=== PATIENT | female | born 1980 | race Caucasian/White ===

== ENCOUNTER → 2016-05-15 | Day surgery (SDC) | payer OTHER ==
[~2016-05-15] VITALS: Ht 170.2 cm; Wt 86.6 kg
[~2016-05-15] MED LIST: /ADVA50050 INH; /LINE60TA OR; ALBU17IN INH; ALBU17IN2; AMIT50TA4 PO; BUPIVACAINE HCL 0.25% 30 ML VIAL As Ordered ONE; BUPIVACAINE HCL 0.25% 30 ML VIAL XX ONE; CETI5TAB2; CLAR5CHW OR; COMBIN INH; DEPOPROVERA; DOXY100T OR; GABA-283 PO; GABA300C2 PO; HYDR-2807 PO; IBUP200T2 PO; IBUP400T OR; KLON0.5T PO; LITH300T2; LR 1,000 ML IV SCH; LUPRON; LYRI150C PO; MEDR1VL IM; MIDAZOLAM INJ 2 MG/2 ML VIAL (J2250) As Ordered ONE; MIRAPEX; MIRAPEX PO; NORETHINDRONE PO; ONDANSETRON 4MG/2ML VIAL (J2405) As Ordered ONE; ONDANSETRON 4MG/2ML VIAL (J2405) IV PRN; OXYC1TAB23 PO; PERCOCET 5MG/325MG TAB PO PRN; PRIL40CA PO; RANITAB PO; SERO50TA3 PO; SILVER NITRATE APPLICATOR As Ordered ONE; SING10TA31 OR; SOMA350T OR; TAGA200T OR; VICO5TAB16 PO; VICODINES TAB OR; VITA-122 PO; ZANTTAB PO; [UNRECOGNIZED DRUG - OTHER]; fentaNYL 100 MCG/2 ML INJECTION (J3010) IV PRN; fentaNYL 250 MCG/5 ML INJECTION (J3010) As Ordered ONE; singular PO
[2016-05-15 06:49] LABS: MEAN CORPUSCULAR HEMOGLOBIN 28.8 pg (27.0-33.0); MEAN CORPUSCULAR VOLUME 87.2 fl (80.0-96.0); WHITE BLOOD COUNT 7.5 K/mm3 (4.0-10.0)
[2016-05-15 07:06] LABS: CONTROL LINE HCG INT CTR LINE PRESENT
[2016-05-15 09:22] VITALS: BP 134/80
--- NOTE | 2016-05-15 20:52 | RO ---
DATE OF PROCEDURE: 05/15/2016 PREOPERATIVE DIAGNOSES: 1. Chronic pelvic pain. 2. Vulvar mass x2. POSTOPERATIVE DIAGNOSES: 1. Chronic pelvic pain. 2. Vulvar mass x2. FINDINGS: Laparoscopic inspection revealed no evidence of endometriosis anywhere in the abdomen or pelvis. She also had no evidence of any abdominal pelvic adhesive disease. Inspection revealed normal appearing adnexa/bilateral ovaries and a normal appearing uterus. No uterine masses. No ovarian cysts or masses. Gambling Counsellor images taken. Normal liver edge. No intra-abdominal masses/adhesions. Vulvar mass was approximately 1.5 cm, condylomatous on the patient's left vulva/buttocks. She also had a right-sided vulvar skin tag just above clitoris. Both of these were removed without any difficulty. SURGEON: Dr. Jd Garcia DIRECTOR OF INSTITUTIONAL RESEARCH: Dr. Guanako Bass ANESTHESIA TYPE: General endotracheal. SPECIMENS SENT TO PATHOLOGY: 1. Vulvar mass/condyloma. 2. Vulvar mass/ skin tag. ESTIMATED BLOOD LOSS: 5 mL. FLUID REPLACED: 900 mL of lactated Ringer's. DRAINS: Mccartney catheter 300 mL urine output. COMPLICATIONS: None. PREOPERATIVE ANTIBIOTICS: None indicated. INDICATION: The patient is a 35-year-old 2, para 2 with a longstanding history of chronic pelvic pain. She has undergone multiple laparoscopies. With her last laparoscopy, she was told that she had endometriosis, and that the endometriosis was fulgurated and excised. She has had return of her chronic pelvic pain, and she has not been responsive to Depo-Provera medical therapy. She was adamant about proceeding towards another surgical evaluation/treatment. She also requested removal of the vulvar masses mentioned above. DESCRIPTION OF PROCEDURE: The patient was counseled and consented on the risks, benefits, indications, and alternatives of the procedure and informed consent was obtained. She was taken to the operating room with an IV running and placed on the operating table in the dorsal supine position where general anesthesia was administered and secured without any difficulty. She was placed in the low lithotomy position. She was prepared and draped in the normal sterile fashion. A time-out was performed per protocol. A Mccartney catheter was placed under sterile conditions. A sterile speculum was placed with good visualization of the cervix. The cervix was grasped with a single-tooth tenaculum and downward traction was applied. The [employer] uterine manipulator was then placed in typical fashion. The sterile speculum was removed. Glove switch was performed. Attention was turned to the abdomen. 5 mL of 0.25% Marcaine were injected into the umbilicus. A 5 mm incision was made in the umbilicus and through this 5 mm incision, a Veress needle was placed into the intraperitoneal cavity. Intraperitoneal placement was confirmed with ease of flow of normal saline, negative return on aspiration, and a positive drop test. Opening pressure was 6 mmHg. The abdomen was insufflated with 2 liters of gas, and the Veress needle was then removed. The size 5 mm Xcel laparoscopic trocar was placed under direct visualization and peritoneal placement was confirmed without any evidence of incidental bleeding or injury. The patient was placed in steep Trendelenburg. The uterus was manipulated to reveal pelvic anatomy. No significant findings were evident. No evidence of any endometriosis implants or significant adhesive disease. See findings above. Given the lack of findings, the patient was taken out of Trendelenburg. The gas was released from the abdomen. The laparoscopic cannula was removed. The skin incision was closed with #4-0 Monocryl in a subcuticular fashion and reinforced with Dermabond. Attention was turned back to the pelvis. The left vulvar mass was grasped with forceps and the underlying base was excised with a #15 blade until flush with the skin. The specimen was sent to pathology for permanent section. The resulting skin defect was closed with #3-0 Vicryl in running fashion. Excellent hemostasis was noted. The right-sided skin tag was then elevated with tissue forceps and at the base was excised with the #15 blade. This very small defect was bleeding very minimally and was cauterized with silver nitrate. Excellent hemostasis was noted. Pressure bandages were placed over both of these areas and excellent hemostasis was noted. The patient tolerated the entire procedure well. She was transferred to the post-anesthesia care unit (PACU) in good, stable condition. Of note, sponge, lap, needle and instrument counts were correct. EVANS
== END | disposition home or self-care (01) ==
LOC: M SDC 06:00
PROVIDERS: ATTEND Obstetrics & Gynecology
DX: R10.2 Pelvic and perineal pain (principal); N84.2 Polyp of vagina; N84.3 Polyp of vulva; K21.9 Gastro-esophageal reflux disease without esophagitis; F41.9 Anxiety disorder, unspecified; F32.9 Major depressive disorder, single episode, unspecified; J45.909 Unspecified asthma, uncomplicated; F17.210 Nicotine dependence, cigarettes, uncomplicated; Z88.0 Allergy status to penicillin; Z88.2 Allergy status to sulfonamides; Z88.8 Allergy status to other drugs, medicaments and biological substances; Z79.899 Other long term (current) drug therapy
CPT/HCPCS: 11420; 11422; 36415; 49320; 84703; 85027; 86850; 86900; 86901; 88304; J2250; J2405; J3010

== ENCOUNTER 2016-06-25 15:06 | Emergency (ER) | payer OTHER ==
[~2016-06-25] VITALS: Ht 170.2 cm; Wt 84.4 kg
[~2016-06-25 15:06] MED LIST changes: -BUPIVACAINE HCL 0.25% 30 ML VIAL As Ordered ONE; -BUPIVACAINE HCL 0.25% 30 ML VIAL XX ONE; -LR 1,000 ML IV SCH; -MIDAZOLAM INJ 2 MG/2 ML VIAL (J2250) As Ordered ONE; -ONDANSETRON 4MG/2ML VIAL (J2405) As Ordered ONE; -ONDANSETRON 4MG/2ML VIAL (J2405) IV PRN; -PERCOCET 5MG/325MG TAB PO PRN; -SILVER NITRATE APPLICATOR As Ordered ONE; -fentaNYL 100 MCG/2 ML INJECTION (J3010) IV PRN; -fentaNYL 250 MCG/5 ML INJECTION (J3010) As Ordered ONE
[2016-06-25] MEDS ORDERED: METOCLOPRAMIDE INJ 10MG/2ML VIAL (J2765) IV ONE (16:30)
[2016-06-25] MEDS ORDERED: methylPREDNISolone INJ 125 MG/2 ML VIAL (J2930) IV ONE (16:30)
[2016-06-25] MEDS ORDERED: KETOROLAC 30 MG/ML VIAL (J1885) IV ONE (16:30)
[2016-06-25] MEDS ORDERED: diphenhydrAMINE INJ 50MG/ML VIAL (J1200) IV STA (16:40)
--- NOTE | 2016-06-25 16:57 | REP ---
Clinical: Headache . Comparison: 01/29/2016 . Findings: The ventricles, sulci, and cisterns are normal in position and appearance. Aguilera-white differentiation is maintained. No acute intracranial hemorrhage, mass/mass effect, pathology or trauma/injury. No evidence for acute infarction. No extra-axial fluid collection. Calvarium is intact. Paranasal sinuses and mastoid air cells are clear. Impression: Normal noncontrast head CT. No evidence for acute intracranial pathology or trauma/injury. Signed by Uziel Freed MD 06/25/2016 04:49 P
[2016-06-25] MEDS ORDERED: NAPR500T PO (17:29)
[2016-06-25] MEDS ORDERED: PRED20TA PO (17:29)
[2016-06-25 17:31] VITALS: BP 121/83
== END 2016-06-25 17:42 | disposition home or self-care (01) ==
LOC: M ED 16:10
DX: J01.90 Acute sinusitis, unspecified (principal)
CPT/HCPCS: 70450; 96374; 96375; 99282; J1200; J2765; J2930

== ENCOUNTER 2016-08-17 18:06 | Emergency (ER) | payer OTHER ==
[~2016-08-17] VITALS: Ht 170.2 cm; Wt 84.4 kg
[~2016-08-17 18:06] MED LIST changes: +NAPR500T PO; +PRED20TA PO
[2016-08-17] MEDS ORDERED: CLON-412 (18:24)
[2016-08-17] MEDS ORDERED: SOMA350T PO (18:24)
[2016-08-17 18:49] LABS: BASO % 0.4 % (0.0-1.0); EOS # 0.2 K/mm3 (0.0-0.50); EOS % 1.6 % (0.0-3.0); LARGE UNSTAINED CELL # 0.1 K/mm3 (0.0-0.4); LYMPH # 2.3 K/mm3 (1.5-4.5); MEAN CORPUSCULAR HEMOGLOBIN 29.7 pg (27.0-33.0); MEAN CORPUSCULAR HGB CONC 33.7 g/dl (32.0-36.5); MONO # 0.3 K/mm3 (0.0-0.8); MONO % 3.3 % (0.0-5.0); NEUTROPHILS # 6.1 K/mm3 (1.8-7.7); NEUTROPHILS % 67.7 % (36.0-66.0); PLATELET COUNT, AUTOMATED 223 k/mm3 (150-450); RED CELL DISTRIBUTION WIDTH 12.9 % (11.5-14.5)
--- NOTE | 2016-08-17 19:10 | REP ---
Clinical: Chest pain . Comparison: 07/02/2015 . Findings: The mediastinum and cardiac silhouette are stable and within normal limits for portable technique. The lung rashid are clear without acute consolidation, effusion, or pneumothorax. Skeletal structures are intact. Impression: Normal portable chest x-ray Signed by Uziel Freed MD 08/17/2016 07:02 P
[2016-08-17] MEDS ORDERED: METOCLOPRAMIDE INJ 10MG/2ML VIAL (J2765) IV ONE (19:30)
[2016-08-17] MEDS ORDERED: diphenhydrAMINE INJ 50MG/ML VIAL (J1200) IV ONE (19:30)
[2016-08-17] MEDS ORDERED: KETOROLAC 30 MG/ML VIAL (J1885) IV ONE (19:30)
[2016-08-17] MEDS ORDERED: NS 1,000 ML IV ONE (19:30)
[2016-08-17] MEDS ORDERED: methylPREDNISolone INJ 125 MG/2 ML VIAL (J2930) IV ONE (19:45)
[2016-08-17 20:18] LABS: ANION GAP 8 MEQ/L (8-16); BLOOD UREA NITROGEN 12 MG/DL (7-18); CALCIUM LEVEL 8.7 MG/DL (8.5-10.1); CARBON DIOXIDE LEVEL 25 MEQ/L (21-32); CHLORIDE LEVEL 109 MEQ/L (98-107); CREATININE FOR GFR 0.74 MG/DL (0.55-1.02); GLOMERULAR FILTRATION RATE > 60.0 (>60); GLUCOSE, FASTING 88 MG/DL (70-105); POTASSIUM SERUM 3.7 MEQ/L (3.5-5.1); SODIUM LEVEL 142 MEQ/L (136-145)
[2016-08-17] MEDS ORDERED: PRED20TA PO (20:41)
[2016-08-17 20:44] VITALS: BP 127/79
--- NOTE | 2016-08-17 21:43 | ECGEPIP ---
Stationary ECG Study [facility] - ED Test Date: 2016-08-17 Pat Name: GABY BRAY Department: Room: - Gender: F Stockbroker: OliveiraB: 1980 Requested By: Apurva Van Order Number: [id number] Reading MD: Carloz Gustafson Measurements Intervals [place] Rate: 109 P: 48 AR: 120 QRS: -6 QRSD: 86 T: 13 QT: 311 QTc: 420 Interpretive Statements SINUS TACHYCARDIA Electronically Signed On 08-17-2016 21:43:14 EDT by Carloz Gustafson
== END 2016-08-17 20:55 | disposition left against medical advice (07) ==
LOC: M ED 18:50
DX: G43.909 Migraine, unspecified, not intractable, without status migrainosus (principal); R07.89 Other chest pain; Z79.899 Other long term (current) drug therapy; Z88.0 Allergy status to penicillin; Z88.1 Allergy status to other antibiotic agents; Z88.2 Allergy status to sulfonamides; Z88.5 Allergy status to narcotic agent; Z88.6 Allergy status to analgesic agent

== ENCOUNTER 2016-09-10 17:26 | Emergency (ER) | payer OTHER ==
[~2016-09-10] VITALS: Ht 170.2 cm; Wt 94.3 kg
[~2016-09-10 17:26] MED LIST changes: +CLON-412; +SOMA350T PO
[2016-09-10] MEDS ORDERED: NITROGLYCERIN 0.4 MG SUBL TABLET SL STA (17:55)
[2016-09-10] MEDS ORDERED: ASPIRIN 81 MG CHEW TABLET PO ONE (18:00)
[2016-09-10 18:17] LABS: INR 0.99
[2016-09-10 18:20] LABS: BASO # 0.1 K/mm3 (0.0-0.2); BASO % 0.7 % (0.0-1.0); EOS # 0.2 K/mm3 (0.0-0.50); EOS % 2.5 % (0.0-3.0); LARGE UNSTAINED CELL # 0.1 K/mm3 (0.0-0.4); LARGE UNSTAINED CELL % 1.4 % (0.0-4.0); LYMPH # 2.9 K/mm3 (1.5-4.5); LYMPH % 31.8 % (24.0-44.0); MEAN CORPUSCULAR HGB CONC 33.3 g/dl (32.0-36.5); MEAN CORPUSCULAR VOLUME 87.2 fl (80.0-96.0); MONO # 0.5 K/mm3 (0.0-0.8); MONO % 5.2 % (0.0-5.0); NEUTROPHILS # 5.1 K/mm3 (1.8-7.7); NEUTROPHILS % 58.4 % (36.0-66.0); PLATELET COUNT, AUTOMATED 255 k/mm3 (150-450); RED CELL DISTRIBUTION WIDTH 13.3 % (11.5-14.5); WHITE BLOOD COUNT 8.8 K/mm3 (4.0-10.0)
[2016-09-10 18:27] LABS: ANION GAP 8 MEQ/L (8-16); BLOOD UREA NITROGEN 11 MG/DL (7-18); CALCIUM LEVEL 8.6 MG/DL (8.5-10.1); CARBON DIOXIDE LEVEL 22 MEQ/L (21-32); CHLORIDE LEVEL 106 MEQ/L (98-107); CREATININE FOR GFR 0.77 MG/DL (0.55-1.02); GLOMERULAR FILTRATION RATE > 60.0 (>60); GLUCOSE, FASTING 113 MG/DL (70-105); POTASSIUM SERUM 3.6 MEQ/L (3.5-5.1); SODIUM LEVEL 136 MEQ/L (136-145)
--- NOTE | 2016-09-10 18:40 | REPUSA ---
CLINICAL HISTORY: Chest pain. COMMENTS: Real time sonography with duplex doppler of the extremities bilaterally was performed with attention to the major deep venous structures. Evaluation reveals the common femoral, superficial femoral and popliteal veins bilaterally to be comp letely compressible without intraluminal thrombus. There is normal spontaneous phasic flow and augmen tation in all deep veins. The greater saphenous/common femoral vein junctions are patent bilaterally. IMPRESSION: No evidence of DVT in the lower extremities bilaterally. Thank you for your kind referral of this patient.
[2016-09-10] MEDS ORDERED: ISOVUE-370 76% 100ML VIAL (Q9967) As Ordered ONE (19:02)
[2016-09-10] MEDS ORDERED: MORPHINE 4 MG/ML 1ML SYRINGE IV ONE ×2 (20:00→21:30)
--- NOTE | 2016-09-10 20:00 | REPUSA ---
CLINICAL HISTORY: Chest pain. Rule out PE. COMPARISON: No prior CTA of the chest available. TECHNIQUE: A CT-pulmonary angiogram was performed. A dose of intravenous contrast was administered. A xial images were displayed, as were sagittal and coronal reconstructions. FINDINGS: No CT evidence of pulmonary embolism is identified. Scattered upper lobe predominance paraseptal emphysema is seen. Small hiatal hernia is seen. Bibasi lar atelectatic changes are present. There is no evidence of thoracic aortic aneurysm or dissection. No airspace consolidation is identified in the lungs. There is no evidence of pulmonary edema. No pat hologically enlarged hilar or mediastinal lymph nodes are identified. No significant pleural or peric ardial fluid collection is seen. There is no evidence of pneumothorax. Mild degenerative changes are noted in the spine. The included portion of the upper abdomen does not show significant abnormality. IMPRESSION: No evidence of pulmonary embolism is identified. Scattered upper lobe predominance paraseptal emphysema is seen. Small hiatal hernia is seen. Thank you for your kind referral of this patient. We appreciate the opportunity to participate in thi s patient's care.
[2016-09-10] MEDS ORDERED: ONDANSETRON 4MG/2ML VIAL (J2405) As Ordered ONE (21:38)
[2016-09-10] MEDS ORDERED: ONDANSETRON 4MG/2ML VIAL (J2405) IV ONE (21:45)
[2016-09-10 23:53] VITALS: BP 105/55
[2016-09-11] MEDS ORDERED: MORPHINE 4 MG/ML 1ML SYRINGE IV ONE
--- NOTE | 2016-09-11 08:16 | ECGEPIP ---
Stationary ECG Study [facility] - ED Test Date: 2016-09-10 Pat Name: GABY BRAY Department: Room: - Gender: F Telephone Order Dispatcher: ct : 1980 Requested By: Carloz Haynes Order Number: [id number] Reading MD: Carloz Gustafson Measurements Intervals [place] Rate: 97 P: 54 MS: 147 QRS: -2 QRSD: 82 T: 3 QT: 316 QTc: 402 Interpretive Statements SINUS RHYTHM NONSPECIFIC T-WAVE ABNORMALITY SIMILAR TO 08/17/16 Electronically Signed On 09-11-2016 8:15:57 EDT by Carloz Gustafson
--- NOTE | 2016-09-11 08:29 | ECGEPIP ---
Stationary ECG Study [facility] - ED Test Date: 2016-09-10 Pat Name: GABY BRAY Department: Room: - Gender: F Supervisor Insulation: ignacia : 1980 Requested By: MARINA Arevalo Order Number: [id number] Reading MD: Carloz Gustafson Measurements Intervals [place] Rate: 101 P: 52 VT: 130 QRS: 10 QRSD: 89 T: 15 QT: 328 QTc: 426 Interpretive Statements SINUS TACHYCARDIA NSTTW ABNORMALITY SIMILAR TO PRIOR ON SAME DATE Electronically Signed On 09-11-2016 8:29:01 EDT by Carloz Gustafson
== END 2016-09-11 00:20 | disposition home or self-care (01) ==
LOC: M ED 18:00
DX: R07.89 Other chest pain (principal); J45.909 Unspecified asthma, uncomplicated; N80.9 Endometriosis, unspecified; M51.9 Unspecified thoracic, thoracolumbar and lumbosacral intervertebral disc disorder; G93.5 Compression of brain; Z82.49 Family history of ischemic heart disease and other diseases of the circulatory system; Z79.899 Other long term (current) drug therapy; Z88.0 Allergy status to penicillin; Z88.1 Allergy status to other antibiotic agents; Z88.2 Allergy status to sulfonamides; Z88.5 Allergy status to narcotic agent; F17.210 Nicotine dependence, cigarettes, uncomplicated

== ENCOUNTER 2016-10-31 14:04 | Emergency (ER) | payer OTHER ==
[~2016-10-31] VITALS: Ht 170.2 cm; Wt 84.5 kg
[2016-10-31 14:13] VITALS: BP 139/91
[2016-10-31] MEDS: ACETAMINOPHEN TAB 650MG DOSE (2X325MG) PO ONE ×2 (14:45→14:55)
[2016-10-31 14:58] LABS: BASO % 0.4 % (0.0-1.0); EOS # 0.1 K/mm3 (0.0-0.50); EOS % 0.9 % (0.0-3.0); LARGE UNSTAINED CELL # 0.1 K/mm3 (0.0-0.4); LARGE UNSTAINED CELL % 0.5 % (0.0-4.0); LYMPH # 2.1 K/mm3 (1.5-4.5); LYMPH % 22.1 % (24.0-44.0); MEAN CORPUSCULAR HEMOGLOBIN 29.9 pg (27.0-33.0); MEAN CORPUSCULAR HGB CONC 34.7 g/dl (32.0-36.5); MEAN CORPUSCULAR VOLUME 86.3 fl (80.0-96.0); MONO # 0.3 K/mm3 (0.0-0.8); MONO % 3.6 % (0.0-5.0); NEUTROPHILS # 6.7 K/mm3 (1.8-7.7); NEUTROPHILS % 72.4 % (36.0-66.0); PLATELET COUNT, AUTOMATED 240 k/mm3 (150-450); RED CELL DISTRIBUTION WIDTH 13.2 % (11.5-14.5); WHITE BLOOD COUNT 9.2 K/mm3 (4.0-10.0)
[2016-10-31] MEDS ORDERED: METOCLOPRAMIDE INJ 10MG/2ML VIAL (J2765) IV ONE (15:00)
[2016-10-31 15:08] LABS: ANION GAP 11 MEQ/L (8-16); BLOOD UREA NITROGEN 12 MG/DL (7-18); CALCIUM LEVEL 8.7 MG/DL (8.5-10.1); CARBON DIOXIDE LEVEL 22 MEQ/L (21-32); CHLORIDE LEVEL 108 MEQ/L (98-107); CREATININE FOR GFR 0.88 MG/DL (0.55-1.02); GLOMERULAR FILTRATION RATE > 60.0 (>60); GLUCOSE, FASTING 104 MG/DL (70-105); POTASSIUM SERUM 3.7 MEQ/L (3.5-5.1); SODIUM LEVEL 141 MEQ/L (136-145)
--- NOTE | 2016-11-01 07:59 | ECGEPIP ---
Stationary ECG Study [facility] - ED Test Date: 2016-10-31 Pat Name: GABY BRAY Department: Room: - Gender: F Wire Winder: ganga : 1980 Requested By: Carloz Haynes Order Number: [id number] Reading MD: Carloz Gustafson Measurements Intervals [place] Rate: 92 P: 39 MD: 144 QRS: -12 QRSD: 88 T: -4 QT: 327 QTc: 406 Interpretive Statements SINUS RHYTHM NSTTW ABNORMALITIES SIMILAR TO 09/10/16 Electronically Signed On 11-01-2016 7:59:10 EDT by Carloz Gustafson
== END 2016-10-31 15:27 | disposition home or self-care (01) ==
LOC: M ED 14:04
DX: Z76.5 Malingerer [conscious simulation] (principal); G89.4 Chronic pain syndrome; Z72.0 Tobacco use; F12.10 Cannabis abuse, uncomplicated
CPT/HCPCS: 80048; 80320; 82550; 82553; 85025; 93000; 96374; 99284; J2765

== ENCOUNTER 2016-12-08 16:42 | Emergency (ER) | payer OTHER ==
[~2016-12-08] VITALS: Ht 170.2 cm; Wt 84.5 kg
[2016-12-08 16:43] VITALS: BP 153/89
== END 2016-12-08 17:18 | disposition left against medical advice (07) ==
LOC: M ED 16:42
DX: S69.92XA Unspecified injury of left wrist, hand and finger(s), initial encounter (principal); X58.XXXA Exposure to other specified factors, initial encounter; Y92.89 Other specified places as the place of occurrence of the external cause; Y93.89 Activity, other specified; Y99.8 Other external cause status; Z53.29 Procedure and treatment not carried out because of patient's decision for other reasons

== ENCOUNTER → 2016-12-09 | Outpatient (CLI) | payer OTHER ==
[~2016-12-09] MED LIST changes: +CEFD1CAP8 PO; +MAGICMW SSP; +TESS100C PO
--- NOTE | 2016-12-09 13:53 | REP ---
Clinical: Contusion. Technique: AP, lateral, bilateral oblique views left hand . Findings: The osseous structures and joint spaces are intact and normal. There is no evidence for acute fracture or dislocation. Surrounding soft tissues are unremarkable. No subcutaneous emphysema or radiodense foreign body. Impression: Essentially normal left hand radiographs. No acute fracture or dislocation. Signed by Uziel Freed MD 12/09/2016 01:44 P
== END ==
LOC: M WUC 13:34
PROVIDERS: ATTEND Physician Assistant
DX: S60.222A Contusion of left hand, initial encounter (principal); X58.XXXA Exposure to other specified factors, initial encounter; Y93.9 Activity, unspecified; Y92.9 Unspecified place or not applicable; Y99.8 Other external cause status

== ENCOUNTER 2017-01-02 18:30 | Emergency (ER) | payer OTHER ==
[~2017-01-02] VITALS: Ht 170.2 cm; Wt 84.5 kg
[~2017-01-02 18:30] MED LIST changes: -CEFD1CAP8 PO; -MAGICMW SSP; -TESS100C PO
[2017-01-02] MEDS ORDERED: ACETAMINOPH W/CODEINE #3 TAB UD PO ONE (21:15)
[2017-01-02] MEDS ORDERED: CEFDINIR 300 MG CAP (OMNICEF) PO ONE (21:15)
[2017-01-02] MEDS ORDERED: MAGICMW SSP (21:19)
[2017-01-02] MEDS ORDERED: CEFD1CAP8 PO (21:19)
[2017-01-02] MEDS ORDERED: TESS100C PO (21:20)
[2017-01-02 21:25] VITALS: BP 136/82
== END 2017-01-02 21:47 | disposition home or self-care (01) ==
LOC: M ED 18:30
DX: J06.9 Acute upper respiratory infection, unspecified (principal); H66.92 Otitis media, unspecified, left ear; Z72.0 Tobacco use

== ENCOUNTER 2017-02-28 14:35 | Emergency (ER) | payer OTHER, MEDICAID ==
[~2017-02-28] VITALS: Ht 170.2 cm; Wt 90.9 kg
[~2017-02-28 14:35] MED LIST changes: +CEFD1CAP8 PO; +MAGICMW SSP; +TESS100C PO
[2017-02-28] MEDS ORDERED: ACETAMINOPHEN 325 MG TAB PO ONE (16:00)
[2017-02-28] MEDS ORDERED: OMEP20CA3 PO (16:42)
[2017-02-28 16:57] VITALS: BP 126/77
--- NOTE | 2017-02-28 18:13 | ECGEPIP ---
Stationary ECG Study [facility] - ED Test Date: 2017-02-28 Pat Name: GABY BRAY Department: Room: - Gender: F Data Architect: ct : 1980 Requested By: Apurva Van Order Number: [id number] Reading MD: Carloz Gustafson Measurements Intervals [place] Rate: 96 P: 47 DE: 131 QRS: -3 QRSD: 85 T: 6 QT: 330 QTc: 419 Interpretive Statements SINUS RHYTHM WITH SINUS ARRHYTHMIA NSTTW ABNORMALITIES SIMILAR TO 10/31/16 Electronically Signed On 02-28-2017 18:13:28 EST by Carloz Gustafson
== END 2017-02-28 17:03 | disposition home or self-care (01) ==
LOC: M ED 14:35
DX: J01.90 Acute sinusitis, unspecified (principal); H53.8 Other visual disturbances; K44.9 Diaphragmatic hernia without obstruction or gangrene; K21.9 Gastro-esophageal reflux disease without esophagitis; Z72.0 Tobacco use

== ENCOUNTER 2018-03-04 19:32 | Emergency (ER) | payer OTHER ==
[2018-03-04] MEDS: diphenhydrAMINE INJ 50MG/ML VIAL (J1200) IV (20:55)
[2018-03-04] MEDS: GI COCKTAIL 50ML BTL(HYOSCYAMINE/MAALOX/LIDOCAINE VISCOUS)(1:3:1) PO (20:55)
[2018-03-04] MEDS: FAMOTIDINE 20 MG TAB PO (20:55)
[2018-03-04] MEDS: ONDANSETRON 4MG/2ML VIAL (J2405) IV (20:55)
[2018-03-04] MEDS: KETOROLAC 30 MG/ML VIAL (J1885) IV (20:56)
[2018-03-04 20:57] LABS: BASO # 0.1 10^3/uL (0.0-0.2); BASO % 0.5 % (0.0-1.0); EOS # 0.2 10^3/uL (0.0-0.50); EOS % 1.8 % (0.0-3.0); HEMATOCRIT 43.6 % (36.0-47.0); HEMOGLOBIN 14.9 g/dl (12.0-15.5); IMMATURE GRANULOCYTE % 0.5 % (0-3.0); LYMPH # 3.2 10^3/uL (1.5-4.5); LYMPH % 32.2 % (24.0-44.0); MEAN CORPUSCULAR HEMOGLOBIN 32.5 pg (27.0-33.0); MEAN CORPUSCULAR HGB CONC 34.2 g/dl (32.0-36.5); MEAN CORPUSCULAR VOLUME 95.2 fl (80.0-96.0); MONO # 0.8 10^3/uL (0.0-0.8); MONO % 7.6 % (0.0-5.0); NEUTROPHILS # 5.8 10^3/uL (1.8-7.7); NEUTROPHILS % 57.4 % (36.0-66.0); PLATELET COUNT, AUTOMATED 231 10^3/uL (150-450); RED BLOOD COUNT 4.58 10^6/uL (4.00-5.40); RED CELL DISTRIBUTION WIDTH 13.1 % (11.5-14.5)
[2018-03-04] MEDS: NS 1,000 ML IV (20:58)
[2018-03-04 21:00] LABS: KETONE, URINE AUTO RFX NEGATIVE (NEGATIVE); LEUKOCYTE ESTERASE UR AUTO RFX NEGATIVE (NEGATIVE); MUCUS, URINE RFX SMALL (NEGATIVE); NITRITE, URINE AUTO RFX NEGATIVE (NEGATIVE); RBC, URINE AUTO RFX 1 /HPF (0-3); SPECIFIC GRAVITY UR AUTO RFX 1.024 (1.002-1.035); SQUAM EPITHELIAL CELL UR AURFX 3 /HPF (0-6); WBC, URINE AUTO RFX 1 /HPF (0-3)
[2018-03-04 21:25] LABS: ALBUMIN 3.7 GM/DL (3.2-5.2); ALBUMIN/GLOBULIN RATIO 0.95 (1.00-1.93); ALKALINE PHOSPHATASE 72 U/L (45-117); ALT/SGPT 70 U/L (12-78); ANION GAP 11 MEQ/L (8-16); AST/SGOT 40 U/L (7-37); BILIRUBIN,DIRECT < 0.1 MG/DL (0.0-0.2); BILIRUBIN,TOTAL 0.2 MG/DL (0.2-1.0); BLOOD UREA NITROGEN 18 MG/DL (7-18); CALCIUM LEVEL 9.1 MG/DL (8.5-10.1); CARBON DIOXIDE LEVEL 26 MEQ/L (21-32); CHLORIDE LEVEL 105 MEQ/L (98-107); CK-MB VALUE MASS < 1.0 NG/ML (<3.6); CPK CREATINE PHOSPHOKINASE 99 U/L (26-192); CREATININE FOR GFR 0.79 MG/DL (0.55-1.30); GLOMERULAR FILTRATION RATE > 60.0 (>60); GLUCOSE, FASTING 98 MG/DL (70-100); LIPASE 122 U/L (73-393); MB/CK RELATIVE INDEX 1.01 (< OR =4); POTASSIUM SERUM 3.9 MEQ/L (3.5-5.1); SODIUM LEVEL 142 MEQ/L (136-145); TOTAL PROTEIN 7.6 GM/DL (6.4-8.2); TROPONIN I < 0.02 NG/ML (< 0.10)
[2018-03-04] MEDS ORDERED: ISOVUE-370 76% 100ML VIAL (Q9967) As Ordered (21:28)
== END 2018-03-05 00:10 | disposition home or self-care (01) ==
LOC: M ED 03-05 00:10
DX: R10.9 Unspecified abdominal pain (principal); R19.7 Diarrhea, unspecified; E11.9 Type 2 diabetes mellitus without complications; G43.909 Migraine, unspecified, not intractable, without status migrainosus; K21.9 Gastro-esophageal reflux disease without esophagitis; J45.909 Unspecified asthma, uncomplicated; F17.210 Nicotine dependence, cigarettes, uncomplicated
CPT/HCPCS: J1200

== ENCOUNTER → 2018-10-16 | Outpatient (CLI) | payer OTHER ==
[~2018-10-16] MED LIST changes: -/ADVA50050 INH; -/LINE60TA OR; +ADVA1AER2 INH; -GABA-283 PO; +GABA-845 PO; +NAPR-837 PO; -NAPR500T PO; +OMEP20CA4 PO; -SERO50TA3 PO; +SERO50TA4 PO; +ZANT150T40 PO; -ZANTTAB PO; +ZYVO100T OR
--- NOTE | 2018-10-17 10:16 | REP ---
RIGHT KNEE, FIVE VIEWS: Five views right knee performed. No acute fracture or dislocation is seen. Joint spaces appear unremarkable. I suspect a small joint effusion. IMPRESSION: No fracture or dislocation. Joint spaces unremarkable. Small joint effusion. Electronically Signed by Mckinley Aguilera MD 10/18/2018 01:28 P
== END ==
LOC: M WUC 13:39
PROVIDERS: ATTEND Physician Assistant
DX: M25.561 Pain in right knee (principal)

== ENCOUNTER 2019-03-20 17:14 | Emergency (ER) | payer MEDICAID, OTHER ==
[~2019-03-20] VITALS: Ht 170.2 cm; Wt 84.5 kg
[~2019-03-20 17:14] MED LIST changes: +OMEP-172 PO; -OMEP20CA4 PO
[2019-03-20] MEDS ORDERED: RANI150T14 PO (17:40)
[2019-03-20] MEDS ORDERED: CLON-412 PO (17:40)
[2019-03-20] MEDS ORDERED: LORA-674 PO (17:40)
[2019-03-20] MEDS ORDERED: QUET5TAB PO (17:40)
[2019-03-20] MEDS ORDERED: ALBU83IN INH (17:40)
[2019-03-20] MEDS ORDERED: ALBU8.5H INH (17:40)
[2019-03-20 18:29] VITALS: BP 132/84
== END 2019-03-20 18:52 | disposition home or self-care (01) ==
LOC: M ED 17:14
DX: F43.0 Acute stress reaction (principal); F10.10 Alcohol abuse, uncomplicated; G43.909 Migraine, unspecified, not intractable, without status migrainosus; J45.909 Unspecified asthma, uncomplicated; F31.89 Other bipolar disorder; F17.200 Nicotine dependence, unspecified, uncomplicated; F14.10 Cocaine abuse, uncomplicated; Z79.899 Other long term (current) drug therapy; Z88.0 Allergy status to penicillin; Z88.2 Allergy status to sulfonamides; Z88.8 Allergy status to other drugs, medicaments and biological substances; Z88.1 Allergy status to other antibiotic agents; Z88.6 Allergy status to analgesic agent; Z88.5 Allergy status to narcotic agent

== ENCOUNTER → 2020-04-08 | Outpatient (CLI) | payer OTHER, MEDICAID ==
[~2020-04-08] MED LIST changes: +ALBU8.5H INH; +ALBU83IN INH; +CLON-412 PO; -HYDR-2807 PO; +HYDR-4433 PO; +LORA-674 PO; -OMEP-172 PO; +OMEP1CAP73 PO; +QUET5TAB PO; +RANI150T14 PO
== END ==
LOC: M PAIN 11:30
PROVIDERS: ATTEND Family Medicine
DX: M79.7 Fibromyalgia (principal); M54.9 Dorsalgia, unspecified; E11.9 Type 2 diabetes mellitus without complications; J45.909 Unspecified asthma, uncomplicated; G40.909 Epilepsy, unspecified, not intractable, without status epilepticus; G25.81 Restless legs syndrome; F17.210 Nicotine dependence, cigarettes, uncomplicated; Z86.59 Personal history of other mental and behavioral disorders; Z88.0 Allergy status to penicillin; Z88.1 Allergy status to other antibiotic agents; Z88.2 Allergy status to sulfonamides; Z88.6 Allergy status to analgesic agent; Z88.8 Allergy status to other drugs, medicaments and biological substances; Z91.030 Bee allergy status; Z79.899 Other long term (current) drug therapy

== ENCOUNTER 2020-06-14 16:20 | Emergency (ER) | payer OTHER, MEDICAID ==
[~2020-06-14] VITALS: Ht 167.6 cm; Wt 90.0 kg
[~2020-06-14 16:20] MED LIST changes: +QUET50TA3 PO; -QUET5TAB PO
[2020-06-14] MEDS ORDERED: DULO1CAP6 (16:37)
[2020-06-14] MEDS ORDERED: BUSP5TA (16:37)
[2020-06-14] MEDS ORDERED: HYDR-3713 (16:37)
[2020-06-14] MEDS ORDERED: GABA600T4 (16:37)
--- NOTE | 2020-06-14 17:29 | REP ---
INDICATION: pain and swelling s/p knee surgery, r/o dvt. COMPARISON: Comparison sonography February 24, 2017.. TECHNIQUE: Right lower extremity duplex venous ultrasound. FINDINGS: The deep veins are anechoic and fully compressible from the groin to the popliteal fossa in the right lower extremity. Color flow imaging is homogeneous. Spectral Doppler interrogation demonstrates intact respiratory variation in flow and normal manual augmentation of flow. There is no evidence of deep vein thrombosis. IMPRESSION: Negative right lower extremity duplex venous ultrasound. No evidence of deep vein thrombosis. <Electronically signed by Indra Torres > 06/14/20 [id number]
[2020-06-14] MEDS ORDERED: MORPHINE 4 MG/ML 1ML VIAL/SYRINGE (J2270) IV ONE (17:55)
[2020-06-14 18:01] LABS: BASO % 0.3 % (0.0-1.0); EOS # 0.3 10^3/uL (0.0-0.5); EOS % 2.2 % (0.0-3.0); HEMATOCRIT 43.8 % (36.0-47.0); HEMOGLOBIN 14.6 g/dl (12.0-15.5); LYMPH # 2.5 10^3/uL (1.5-5.0); LYMPH % 20.7 % (24.0-44.0); MEAN CORPUSCULAR HEMOGLOBIN 31.7 pg (27.0-33.0); MEAN CORPUSCULAR HGB CONC 33.3 g/dl (32.0-36.5); MONO # 0.9 10^3/uL (0.0-0.8); MONO % 7.1 % (2.0-8.0); NEUTROPHILS # 8.2 10^3/uL (1.5-8.5); PLATELET COUNT, AUTOMATED 299 10^3/uL (150-450); RED BLOOD COUNT 4.61 10^6/uL (4.00-5.40); WHITE BLOOD COUNT 11.9 10^3/uL (4.0-10.0)
[2020-06-14 18:11] LABS: INR 0.95; PROTHROMBIN TIME 12.9 SECONDS (12.5-14.3)
[2020-06-14 18:12] LABS: PARTIAL THROMBOPLASTIN TIME 31.3 SECONDS (24.2-38.5)
[2020-06-14] MEDS ORDERED: ISOVUE-370 76% 100ML VIAL As Ordered ONE (18:17)
[2020-06-14 18:22] LABS: ALBUMIN 3.8 GM/DL (3.2-5.2); BILIRUBIN,DIRECT 0.2 MG/DL (0.0-0.2); BILIRUBIN,TOTAL 0.5 MG/DL (0.2-1.0); C REACTIVE PROTEIN QUANTITATIV 2.98 MG/DL (0.00-0.30); TOTAL PROTEIN 7.7 GM/DL (6.4-8.2)
[2020-06-14 19:06] LABS: ERYTHROCYTE SEDIMENTATION RATE 36 mm/hr (0-20)
--- NOTE | 2020-06-14 19:18 | REPVR ---
PROCEDURE INFORMATION: Exam: CTA Angiogram of the Abdominal Aorta and Bilateral Lower Extremities (Run-off) With IV Contrast Exam date and time: 06/14/2020 6:34 PM Age: 39 years old Clinical indication: Other: S/P arthroscopy/ decreased pulse on right; Prior surgery; Surgery date: 3-7 days post-operative; Surgery type: Knee arthroscopy TECHNIQUE: Imaging protocol: CT angiogram of the abdominal aorta, pelvis and bilateral lower extremities with IV iodinated contrast. 3D rendering (Not supervised by radiologist): MIP and/or 3D reconstructed images were created by the technologist. Radiation optimization: All CT scans at this facility use at least one of these dose optimization techniques: automated exposure control; mA and/or kV adjustment per patient size (includes targeted exams where dose is matched to clinical indication); or iterative reconstruction. Contrast material: ISOVUE 370; Contrast volume: 100 ml; Contrast route: INTRAVENOUS (IV); COMPARISON: CT ABD/PEL W/IV CONTRAST ONLY 03/04/2018 9:37 PM FINDINGS: Aorta: No aortic aneurysm. No aortic dissection. Celiac trunk and mesenteric arteries: No occlusion or significant stenosis. Renal arteries: No occlusion or significant stenosis. Right iliac arteries: No occlusion or significant stenosis. Right femoral/popliteal arteries: No occlusion or significant stenosis. Right infrapopliteal arteries: No occlusion or significant stenosis. Left iliac arteries: No occlusion or significant stenosis. Left femoral/popliteal arteries: No occlusion or significant stenosis. Left infrapopliteal arteries: No occlusion or significant stenosis. Liver: There is a diffuse decrease in hepatic parenchymal density, consistent with steatosis. Gallbladder and bile ducts: Unremarkable. No calcified stones. No ductal dilation. Pancreas: Unremarkable. No mass. No ductal dilation. Spleen: Normal. No splenomegaly. Adrenals: Normal. No mass. Kidneys and ureters: Normal. No mass. Stomach and bowel: Unremarkable. No obstruction. No mucosal thickening. Appendix: No evidence of appendicitis. Bladder: Unremarkable. No mass. Reproductive: Unremarkable as visualized. Intraperitoneal space: Unremarkable. No free air. No significant fluid collection. Lymph nodes: No lymphadenopathy. Bones/joints: Knee joint effusion on the right. Soft tissues: Unremarkable. IMPRESSION: 1. There is a diffuse decrease in hepatic parenchymal density, consistent with steatosis. 2. Knee joint effusion on the right. 3. Normal examination of the vascular system. Electronically signed by: Alcon Pringle On 06/14/2020 19:18:50 PM
[2020-06-14] MEDS ORDERED: HYDROMORPHONE HCL 0.5 MG/ 0.5 ML SYRINGE (J1170 PER 1) IV ONE (19:20)
[2020-06-14] MEDS ORDERED: HYDR-3713 PO (19:48)
[2020-06-14] MEDS ORDERED: CEPH500C PO (19:48)
[2020-06-14 20:09] VITALS: BP 136/88
== END 2020-06-14 20:11 | disposition home or self-care (01) ==
LOC: M ED 16:20
DX: M25.461 Effusion, right knee (principal); E11.9 Type 2 diabetes mellitus without complications; J45.909 Unspecified asthma, uncomplicated; G43.909 Migraine, unspecified, not intractable, without status migrainosus; K21.9 Gastro-esophageal reflux disease without esophagitis; N83.209 Unspecified ovarian cyst, unspecified side; F31.89 Other bipolar disorder; F41.9 Anxiety disorder, unspecified; F14.10 Cocaine abuse, uncomplicated; F10.10 Alcohol abuse, uncomplicated; F17.200 Nicotine dependence, unspecified, uncomplicated; E66.9 Obesity, unspecified; Z79.3 Long term (current) use of hormonal contraceptives; Z79.899 Other long term (current) drug therapy; Z88.0 Allergy status to penicillin; Z88.2 Allergy status to sulfonamides; Z88.1 Allergy status to other antibiotic agents; Z88.6 Allergy status to analgesic agent; Z88.5 Allergy status to narcotic agent; Z88.8 Allergy status to other drugs, medicaments and biological substances
CPT/HCPCS: 75635; 80047; 80076; 84702; 85025; 85610; 85652; 85730; 86140; 93971; 96374; 96375; 99284; J1170; J2270; Q9967

== ENCOUNTER → 2020-06-18 | Outpatient (REF) | payer OTHER, MEDICAID ==
[~2020-06-18] MED LIST changes: +BUSP5TA; +CEPH500C PO; +DULO1CAP6; +GABA600T4; +HYDR-3713; +HYDR-3713 PO
[2020-06-18 17:56] LABS: SOURCE, BODY FLUID GLUCOSE RT KNEE
[2020-06-18 18:03] LABS: MUCIN CLOT TEST 4+ (4+)
[2020-06-18 18:14] LABS: SOURCE, BODY FLUID RT KNEE; SYNOVIAL FLUID COLOR ORANGE (YELLOW)
[2020-06-18 18:32] LABS: CRYSTALS, BODY FLUID NONE SEEN (NONE SEEN); SOURCE, BODY FLUID CRYSTALS RT KNEE
[2020-06-20 14:14] LABS: BODY FLUID RHEUMATOID SCREEN NEGATIVE (NEGATIVE)
== END ==
LOC: M LAB REF 16:54
PROVIDERS: ATTEND Physician Assistant Surgical
DX: M25.461 Effusion, right knee (principal)

== ENCOUNTER → 2020-07-22 | Outpatient (CLI) | payer OTHER, MEDICAID ==
[2020-07-22 12:07] LABS: BASO % 0.3 % (0.0-1.0); EOS # 0.2 10^3/uL (0.0-0.5); EOS % 1.9 % (0.0-3.0); HEMATOCRIT 44.9 % (36.0-47.0); HEMOGLOBIN 14.7 g/dl (12.0-15.5); LYMPH # 2.1 10^3/uL (1.5-5.0); LYMPH % 23.3 % (24.0-44.0); MEAN CORPUSCULAR HGB CONC 32.7 g/dl (32.0-36.5); MEAN CORPUSCULAR VOLUME 94.7 fl (80.0-96.0); MONO # 0.6 10^3/uL (0.0-0.8); MONO % 6.9 % (2.0-8.0); NEUTROPHILS # 5.9 10^3/uL (1.5-8.5); NEUTROPHILS % 67.3 % (36.0-66.0); PLATELET COUNT, AUTOMATED 258 10^3/uL (150-450); RED BLOOD COUNT 4.74 10^6/uL (4.00-5.40); WHITE BLOOD COUNT 8.8 10^3/uL (4.0-10.0)
[2020-07-22 12:46] LABS: C REACTIVE PROTEIN QUANTITATIV 1.53 MG/DL (0.00-0.30); RHEUMATOID FACTOR QUANT < 10.0 IU/ML (<15.0); URIC ACID 3.9 MG/DL (2.6-6.0)
[2020-07-22 12:48] LABS: ERYTHROCYTE SEDIMENTATION RATE 46 mm/hr (0-20)
== END ==
LOC: M LAB 11:06
PROVIDERS: ATTEND Physician Assistant Surgical
DX: M25.461 Effusion, right knee (principal)

== ENCOUNTER → 2020-08-26 | Outpatient (CLI) | payer OTHER ==
[~2020-08-26] MED LIST changes: +GABA-283 PO; -GABA-845 PO
== END ==
LOC: M LAB 12:15
PROVIDERS: ATTEND Physician Assistant Surgical
DX: M25.461 Effusion, right knee (principal)

== ENCOUNTER → 2020-09-16 | Outpatient (REF) | payer OTHER ==
[2020-09-16 12:54] LABS: BASO # 0.1 10^3/uL (0.0-0.2); BASO % 0.4 % (0.0-1.0); EOS # 0.3 10^3/uL (0.0-0.5); EOS % 1.8 % (0.0-3.0); HEMATOCRIT 46.5 % (36.0-47.0); HEMOGLOBIN 15.2 g/dl (12.0-15.5); LYMPH % 20.8 % (24.0-44.0); MEAN CORPUSCULAR HGB CONC 32.7 g/dl (32.0-36.5); MEAN CORPUSCULAR VOLUME 94.7 fl (80.0-96.0); MONO # 1.1 10^3/uL (0.0-0.8); MONO % 7.5 % (2.0-8.0); NEUTROPHILS # 9.8 10^3/uL (1.5-8.5); PLATELET COUNT, AUTOMATED 327 10^3/uL (150-450); RED BLOOD COUNT 4.91 10^6/uL (4.00-5.40); WHITE BLOOD COUNT 14.3 10^3/uL (4.0-10.0)
[2020-09-16 13:28] LABS: ALT/SGPT 27 U/L (12-78); BILIRUBIN,TOTAL 0.3 MG/DL (0.2-1.0); BLOOD UREA NITROGEN 17 MG/DL (7-18); CALCIUM LEVEL 10.2 MG/DL (8.5-10.1); CARBON DIOXIDE LEVEL 27 MEQ/L (21-32); CHLORIDE LEVEL 104 MEQ/L (98-107); CHOLESTEROL LEVEL 138 MG/DL (<200); CHOLESTEROL RISK RATIO 3.285 (<5); GLOMERULAR FILTRATION RATE > 60.0 (>60); GLUCOSE, FASTING 96 MG/DL (70-100); HDL CHOLESTEROL 42 MG/DL (>40); LDL CHOLESTEROL 69 MG/DL (<100); NON-HDL-C 96 MG/DL; POTASSIUM SERUM 4.3 MEQ/L (3.5-5.1); SODIUM LEVEL 138 MEQ/L (136-145); TOTAL PROTEIN 8.1 GM/DL (6.4-8.2); TRIGLYCERIDES LEVEL 133 MG/DL (<150)
[2020-09-16 13:29] LABS: CREATININE, URINE 58.9 MG/DL; MALB URINE SIEMENS 5.7 MG/L; MAU/CREAT RATIO 9.6 MCG/MG (0.0-30.0)
[2020-09-16 13:56] LABS: HEMOGLOBIN A1c 5.7 %
[2020-09-16 14:44] LABS: TOTAL 25(OH) VITAMIN D 22.1 NG/ML (30.0-100.0)
== END ==
LOC: M SFHCADAM 08:15
PROVIDERS: ATTEND Nurse Practitioner Family
DX: R03.0 Elevated blood-pressure reading, without diagnosis of hypertension (principal); Z13.1 Encounter for screening for diabetes mellitus; Z13.220 Encounter for screening for lipoid disorders; E55.9 Vitamin D deficiency, unspecified

== ENCOUNTER → 2020-10-11 | Outpatient (CLI) | payer OTHER ==
[2020-10-11 19:26] LABS: BASO # 0.1 10^3/uL (0.0-0.2); BASO % 0.4 % (0.0-1.0); EOS # 0.3 10^3/uL (0.0-0.5); EOS % 2.5 % (0.0-3.0); HEMOGLOBIN 13.7 g/dl (12.0-15.5); LYMPH # 3.2 10^3/uL (1.5-5.0); LYMPH % 26.7 % (24.0-44.0); MEAN CORPUSCULAR HEMOGLOBIN 29.9 pg (27.0-33.0); MEAN CORPUSCULAR HGB CONC 32.6 g/dl (32.0-36.5); MEAN CORPUSCULAR VOLUME 91.7 fl (80.0-96.0); MONO # 0.8 10^3/uL (0.0-0.8); MONO % 6.4 % (2.0-8.0); NEUTROPHILS # 7.5 10^3/uL (1.5-8.5); NEUTROPHILS % 63.1 % (36.0-66.0); PLATELET COUNT, AUTOMATED 291 10^3/uL (150-450); RED BLOOD COUNT 4.58 10^6/uL (4.00-5.40); WHITE BLOOD COUNT 11.9 10^3/uL (4.0-10.0)
[2020-10-11 19:46] LABS: C REACTIVE PROTEIN QUANTITATIV 2.58 MG/DL (0.00-0.30); RHEUMATOID FACTOR QUANT < 10.0 IU/ML (<15.0)
[2020-10-11 19:48] LABS: ERYTHROCYTE SEDIMENTATION RATE 126 mm/hr (0-20)
== END ==
LOC: M LAB 18:06
PROVIDERS: ATTEND Physician Assistant
DX: M17.11 Unilateral primary osteoarthritis, right knee (principal)

== ENCOUNTER 2020-10-31 14:41 | Emergency (ER) | payer OTHER ==
[~2020-10-31] VITALS: Ht 167.6 cm; Wt 97.7 kg
[~2020-10-31 14:41] MED LIST changes: -CEFD1CAP8 PO; +CEFD300C41 PO; -QUET50TA3 PO; +QUET50TA4 PO
[2020-10-31] MEDS ORDERED: ACET650T61 PO (17:13)
[2020-10-31] MEDS ORDERED: MORPHINE 4 MG/ML 1ML VIAL/SYRINGE (J2270) IV ONE (18:05)
[2020-10-31 18:39] LABS: BASO % 0.5 % (0.0-1.0); EOS # 0.2 10^3/uL (0.0-0.5); EOS % 2.3 % (0.0-3.0); HEMATOCRIT 43.9 % (36.0-47.0); HEMOGLOBIN 14.3 g/dl (12.0-15.5); LYMPH # 2.4 10^3/uL (1.5-5.0); LYMPH % 27.4 % (24.0-44.0); MEAN CORPUSCULAR HEMOGLOBIN 30.2 pg (27.0-33.0); MEAN CORPUSCULAR HGB CONC 32.6 g/dl (32.0-36.5); MEAN CORPUSCULAR VOLUME 92.6 fl (80.0-96.0); MONO # 0.9 10^3/uL (0.0-0.8); MONO % 10.3 % (2.0-8.0); NEUTROPHILS # 5.1 10^3/uL (1.5-8.5); PLATELET COUNT, AUTOMATED 271 10^3/uL (150-450); RED BLOOD COUNT 4.74 10^6/uL (4.00-5.40); WHITE BLOOD COUNT 8.7 10^3/uL (4.0-10.0)
[2020-10-31 19:33] LABS: ERYTHROCYTE SEDIMENTATION RATE 34 mm/hr (0-20)
[2020-10-31] MEDS ORDERED: HYDR-3713 PO (19:52)
[2020-10-31] MEDS ORDERED: NORCO 5/325MG TABLET (BULK FOR ED) PO ONE (20:10)
[2020-10-31 20:25] VITALS: BP 110/60
== END 2020-10-31 20:28 | disposition home or self-care (01) ==
LOC: M ED 14:41
DX: M25.461 Effusion, right knee (principal); M25.561 Pain in right knee; J45.909 Unspecified asthma, uncomplicated; K21.9 Gastro-esophageal reflux disease without esophagitis; R56.9 Unspecified convulsions; R51.9 Headache, unspecified; F17.200 Nicotine dependence, unspecified, uncomplicated; F14.10 Cocaine abuse, uncomplicated; F10.10 Alcohol abuse, uncomplicated; Z79.3 Long term (current) use of hormonal contraceptives; Z79.899 Other long term (current) drug therapy; Z88.0 Allergy status to penicillin; Z88.2 Allergy status to sulfonamides; Z88.1 Allergy status to other antibiotic agents; Z88.6 Allergy status to analgesic agent; Z88.8 Allergy status to other drugs, medicaments and biological substances
CPT/HCPCS: 73564; 80047; 85025; 85652; 86140; 93971; 96374; 99284; J2270

== ENCOUNTER → 2020-11-25 | Outpatient (REF) | payer OTHER ==
[~2020-11-25] MED LIST changes: +ACET650T61 PO; +CEFD1CAP8 PO; -CEFD300C41 PO
[2020-11-25 17:49] LABS: SOURCE, BODY FLUID OTHER; SYNOVIAL FLUID COLOR YELLOW (COLORLESS)
[2020-11-26 11:26] LABS: CRYSTALS, BODY FLUID CA PYROPHOSPHATE (NONE SEEN); SOURCE, BODY FLUID CRYSTALS RT KNEE
[2020-11-26 11:45] LABS: SOURCE, BODY FLUID GLUCOSE RT KNEE; SOURCE, BODY FLUID URIC ACID RT KNEE; URIC ACID, BODY FLUID 7.1 MG/DL (NOT ESTABLISHED)
[2020-11-26 13:19] LABS: BODY FLUID RHEUMATOID SCREEN NEGATIVE (NEGATIVE); MUCIN CLOT TEST 4+ (4+)
== END ==
LOC: M LAB REF 16:46
PROVIDERS: ATTEND Orthopaedic Surgery
DX: M17.11 Unilateral primary osteoarthritis, right knee (principal); M25.641 Stiffness of right hand, not elsewhere classified

== ENCOUNTER → 2021-02-04 | Outpatient (CLI) | payer OTHER ==
--- NOTE | 2021-02-04 11:40 | REP ---
INDICATION: RT KNEE PAIN. COMPARISON: None. TECHNIQUE: Standing bilateral AP views FINDINGS: There is right knee medial compartmental narrowing with marginal osteophytosis. The remainder of the compartments are symmetric and relatively well maintained. 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 IMPRESSION: Chronic changes as described above. <Electronically signed by Andrei Ross > 02/04/21 [id number]
== END ==
LOC: M SOG 08:41
PROVIDERS: ATTEND Orthopaedic Surgery Adult Reconstructive Orthopaedic Surgery
DX: M25.561 Pain in right knee (principal); M25.761 Osteophyte, right knee; Q74.1 Congenital malformation of knee

== ENCOUNTER → 2021-02-10 | Outpatient (CLI) | payer OTHER | LOC: M LABSMTC 08:47 | PROVIDERS: ATTEND Anesthesiology | DX: Z01.812 Encounter for preprocedural laboratory examination (principal); Z20.822 Contact with and (suspected) exposure to COVID-19 ==

== ENCOUNTER 2021-02-14 11:08 | Day surgery (SDC) | payer OTHER ==
[~2021-02-14] VITALS: Ht 167.6 cm; Wt 96.1 kg
[~2021-02-14 11:08] MED LIST changes: +ACETAMINOPHEN 500 MG TAB PO ONE; -CEFD1CAP8 PO; +CEFD300C41 PO; +GABAPENTIN 300 MG CAP PO ONE; +LR 1,000 ML IV ONE; +ONDANSETRON 4MG/2ML VIAL IV ONE
[2021-02-14] MEDS ORDERED: propofoL 200 MG/20 ML VIAL As Ordered ONE (13:45)
[2021-02-14] MEDS ORDERED: LIDOCAINE 2% INJ 100 MG/5 ML SYRINGE As Ordered ONE (13:45)
[2021-02-14] MEDS ORDERED: dexameTHASONE 4 MG/ML 1ML VIAL (J1100 PER 1MG) As Ordered ONE (13:45)
[2021-02-14] MEDS ORDERED: MIDAZOLAM INJ 2MG/2ML VIAL (J2250 PER 1MG) As Ordered ONE (13:45)
[2021-02-14] MEDS ORDERED: fentaNYL 100 MCG/2 ML INJECTION As Ordered ONE ×2 (13:45→14:38)
[2021-02-14] MEDS ORDERED: BUPIVACAINE HCL 0.5% 30 ML VIAL As Ordered ONE (13:53)
[2021-02-14] MEDS ORDERED: EPINEPHrine INJ 1 MG/ML 1ML AMP As Ordered ONE (13:53)
[2021-02-14] MEDS ORDERED: BUPIVACAINE/EPIN 0.5% 30 ML VIAL As Ordered ONE (14:10)
[2021-02-14] MEDS ORDERED: ALBUTEROL 6.7GM INHALER **FOR ANES. CART/OMNICELL ONLY As Ordered ONE (15:17)
[2021-02-14] MEDS ORDERED: ONDANSETRON 4MG/2ML VIAL IV PRN (15:30)
[2021-02-14] MEDS ORDERED: LR 1,000 ML IV SCH ×2 (15:30→15:55)
[2021-02-14] MEDS ORDERED: fentaNYL 100 MCG/2 ML INJECTION IV PRN (15:30)
[2021-02-14] MEDS: oxyCODONE 5MG TAB PO PRN ×2 (15:43→16:05)
[2021-02-14 16:02] LABS: CRYSTALS, BODY FLUID NONE SEEN (NONE SEEN); SOURCE, BODY FLUID CRYSTALS RT KNEE
[2021-02-14 16:30] VITALS: BP 137/88
== END 2021-02-14 16:52 | disposition home or self-care (01) ==
LOC: M SDC 11:08
PROVIDERS: ATTEND Orthopaedic Surgery Adult Reconstructive Orthopaedic Surgery
DX: M25.461 Effusion, right knee (principal); M12.561 Traumatic arthropathy, right knee; M10.9 Gout, unspecified; J45.909 Unspecified asthma, uncomplicated; F31.9 Bipolar disorder, unspecified; F32.9 Major depressive disorder, single episode, unspecified; G25.81 Restless legs syndrome; Z79.899 Other long term (current) drug therapy; Z88.0 Allergy status to penicillin; Z88.2 Allergy status to sulfonamides; Z88.8 Allergy status to other drugs, medicaments and biological substances
CPT/HCPCS: 29879; 81025; 87070; 87075; 87205; 89060; J0171; J1100; J2250; J3010

== ENCOUNTER → 2022-12-30 | Outpatient (CLI) | payer OTHER ==
[~2022-12-30] MED LIST changes: -ACETAMINOPHEN 500 MG TAB PO ONE; +ALBU2.5V10 INH; -ALBU83IN INH; -GABA-283 PO; +GABA-284 PO; -GABAPENTIN 300 MG CAP PO ONE; +LORA-1041 PO; -LORA-674 PO; -LR 1,000 ML IV ONE; -ONDANSETRON 4MG/2ML VIAL IV ONE
[2022-12-30 17:05] LABS: GC DNA AMPLIFICATION NEGATIVE (NEGATIVE)
[2022-12-30 18:39] LABS: HEMOGLOBIN A1c 5.3 % (4.0-6.0)
[2022-12-30 18:48] LABS: CHOLESTEROL LEVEL 129 MG/DL (<200); CHOLESTEROL RISK RATIO 3.04 (<5); HDL CHOLESTEROL 42.4 MG/DL (>40); LDL CHOLESTEROL 24.4 MG/DL (<100); NON-HDL-C 86.6 MG/DL; TRIGLYCERIDES LEVEL 311 MG/DL (<150)
[2022-12-30 18:51] LABS: HEPATITIS B SURFACE ANTIBODY POSITIVE (POSITIVE)
[2022-12-30 18:53] LABS: TOTAL 25(OH) VITAMIN D 34.8 NG/ML (20.0-100.0)
[2022-12-30 19:16] LABS: HIV 1&2 SCREEN NEGATIVE (NEGATIVE)
[2022-12-30 19:24] LABS: HEPATITIS C VIRUS ABY INDEX 0.06 INDEX (<0.8)
== END ==
LOC: M PLALAB 14:53
PROVIDERS: ATTEND Obstetrics & Gynecology
DX: Z12.4 Encounter for screening for malignant neoplasm of cervix (principal); Z11.3 Encounter for screening for infections with a predominantly sexual mode of transmission

== ENCOUNTER → 2023-01-05 | Outpatient (CLI) | payer MEDICAID, OTHER, SELFPAY | LOC: M WHC 14:02 | PROVIDERS: ATTEND Obstetrics & Gynecology | DX: N80.9 Endometriosis, unspecified (principal); R93.89 Abnormal findings on diagnostic imaging of other specified body structures ==

== ENCOUNTER → 2023-02-08 | Outpatient (CLI) | payer MEDICAID ==
[~2023-02-08] MED LIST changes: -CEFD300C41 PO; +CEFD300C42 PO
[2023-02-08 15:37] LABS: HEMATOCRIT 47.1 % (36.0-47.0); HEMOGLOBIN 15.8 g/dl (12.0-15.5); MEAN CORPUSCULAR HEMOGLOBIN 31.6 pg (27.0-33.0); MEAN CORPUSCULAR HGB CONC 33.5 g/dl (32.0-36.5); MEAN CORPUSCULAR VOLUME 94.2 fl (80.0-96.0); PLATELET COUNT, AUTOMATED 245 10^3/uL (150-450); WHITE BLOOD COUNT 10.5 10^3/uL (4.0-10.0)
[2023-02-08 16:08] LABS: ALBUMIN 3.8 G/DL (3.2-5.2); ALKALINE PHOSPHATASE 81 U/L (46-116); ALT/SGPT 19 U/L (7.0-40); AST/SGOT 22 U/L (<34); BILIRUBIN,TOTAL 0.4 MG/DL (0.3-1.2); BLOOD UREA NITROGEN 9 MG/DL (9-23); CALCIUM LEVEL 9.2 MG/DL (8.5-10.1); CARBON DIOXIDE LEVEL 27 MMOL/L (20-31); CHLORIDE LEVEL 105 MMOL/L (98-107); CREATININE FOR GFR 0.56 MG/DL (0.55-1.30); GLOMERULAR FILTRATION RATE > 60.0 (>58); GLUCOSE, FASTING 85 MG/DL (60-100); POTASSIUM SERUM 4.1 MMOL/L (3.5-5.1); SODIUM LEVEL 143 MMOL/L (136-145); TOTAL PROTEIN 7.6 G/DL (5.7-8.2)
== END ==
LOC: M PLALAB 14:29
PROVIDERS: ATTEND Obstetrics & Gynecology
DX: Z01.419 Encounter for gynecological examination (general) (routine) without abnormal findings (principal); Z11.3 Encounter for screening for infections with a predominantly sexual mode of transmission

== ENCOUNTER → 2023-02-09 | Outpatient (CLI) | payer MEDICAID ==
[2023-02-09 16:13] LABS: HCG, SERUM QUALITATIVE NEGATIVE (NEGATIVE)
== END ==
LOC: M PLALAB 13:20
PROVIDERS: ATTEND Advanced Practice Midwife
DX: Z32.01 Encounter for pregnancy test, result positive (principal)

== ENCOUNTER 2023-10-18 13:59 | Emergency (ER) | payer MEDICAID, SELFPAY ==
[~2023-10-18] VITALS: Ht 170.2 cm; Wt 84.4 kg
[2023-10-18 13:59] VITALS: TEMP 97.4
[~2023-10-18 13:59] MED LIST changes: +CEFD1CAP9 PO; -CEFD300C42 PO
[2023-10-18 17:06] VITALS: BP 125/89; O2SAT 98
[2023-10-18] MEDS: BACITRACIN OINTMENT 30GM TUBE TOP STA (17:24)
== END 2023-10-18 17:36 | disposition home or self-care (01) ==
LOC: M ED 13:59
DX: Z00.00 Encounter for general adult medical examination without abnormal findings (principal); T25.021A Burn of unspecified degree of right foot, initial encounter; T31.0 Burns involving less than 10% of body surface; X58.XXXA Exposure to other specified factors, initial encounter; Y92.009 Unspecified place in unspecified non-institutional (private) residence as the place of occurrence of the external cause; Y92.39 Other specified sports and athletic area as the place of occurrence of the external cause; F31.9 Bipolar disorder, unspecified; F41.9 Anxiety disorder, unspecified; F32.A Depression, unspecified; Q07.00 Arnold-Chiari syndrome without spina bifida or hydrocephalus; E11.9 Type 2 diabetes mellitus without complications; Z96.651 Presence of right artificial knee joint; F17.200 Nicotine dependence, unspecified, uncomplicated; Z79.3 Long term (current) use of hormonal contraceptives; Z79.899 Other long term (current) drug therapy; Z88.0 Allergy status to penicillin; Z88.2 Allergy status to sulfonamides; Z88.1 Allergy status to other antibiotic agents; Z88.6 Allergy status to analgesic agent; Z88.5 Allergy status to narcotic agent

== ENCOUNTER 2024-05-19 13:47 | Emergency (ER) | payer SELFPAY ==
[~2024-05-19] VITALS: Ht 170.2 cm; Wt 91.5 kg
[~2024-05-19 13:47] MED LIST changes: +GABA-1490; -GABA600T4
[2024-05-19] MEDS ORDERED: ERYT5OIN25 OD (21:45)
[2024-05-19 21:57] VITALS: BP 139/96; TEMP 97; O2SAT 98
== END 2024-05-19 22:00 | disposition home or self-care (01) ==
LOC: M ED 13:47
DX: H10.9 Unspecified conjunctivitis (principal); Z79.899 Other long term (current) drug therapy; Z88.0 Allergy status to penicillin; Z88.2 Allergy status to sulfonamides; Z88.1 Allergy status to other antibiotic agents; Z88.6 Allergy status to analgesic agent; Z88.5 Allergy status to narcotic agent; Z88.8 Allergy status to other drugs, medicaments and biological substances

== ENCOUNTER 2025-01-19 01:19 | Emergency (ER) | payer SELFPAY ==
[~2025-01-19] VITALS: Ht 157.5 cm; Wt 90.2 kg
[~2025-01-19 01:19] MED LIST changes: +ERYT5OIN25 OD
[2025-01-19] MEDS: diphenhydrAMINE 50 MG/ML VIAL IM ONE (01:34)
[2025-01-19] MEDS: HALOPERIDOL LACTATE 5 MG/ML VIAL IM ONE (01:35)
[2025-01-19] MEDS: MIDAZOLAM 5 MG/ML 1 ML VIAL IM ONE (01:35)
[2025-01-19 02:04] LABS: PLATELET COUNT, AUTOMATED 285 10^3/uL (150-450)
[2025-01-19 02:25] LABS: ETHYL ALCOHOL (ETHANOL) 0.283 % (0.000-0.010)
[2025-01-19 02:27] LABS: ALT/SGPT 56 U/L (7.0-40); AST/SGOT 49 U/L (<34); CALCIUM LEVEL 9.6 MG/DL (8.5-10.1); CARBON DIOXIDE LEVEL 19 MMOL/L (20-31); CHLORIDE LEVEL 105 MMOL/L (98-107); CPK CREATINE PHOSPHOKINASE 177 U/L (34-145); CREATININE FOR GFR 0.60 MG/DL (0.55-1.30); GLOMERULAR FILTRATION RATE > 90.0 (>58); POTASSIUM SERUM 3.2 MMOL/L (3.5-5.1); SALICYLATE LEVEL < 3.0 MG/DL (<30); SODIUM LEVEL 145 MMOL/L (136-145)
[2025-01-19 02:39] LABS: ATYPICAL LYMPH 2 % (0-5); EOSINOPHILS 1 % (0-3); LYMPHOCYTES 28 % (16-44); MONOCYTES 6 % (0-5); NEUTROPHILS 63 % (28-66); PLATELET ESTIMATE NORMAL (NORMAL)
[2025-01-19] MEDS: MIDAZOLAM INJ 2 MG/2 ML VIAL IV ONE (03:15)
[2025-01-19 06:00] VITALS: TEMP 98.7
[2025-01-19 07:25] LABS: HCG, SERUM QUALITATIVE NEGATIVE (NEGATIVE)
[2025-01-19 08:15] VITALS: O2SAT 92
[2025-01-19 08:19] VITALS: BP 145/72
[2025-01-19] MEDS ORDERED: THIAMINE 100 MG TAB PO SCH (09:00)
[2025-01-19] MEDS ORDERED: FOLIC ACID 1 MG TAB PO SCH (09:00)
[2025-01-19] MEDS ORDERED: MULTIVITAMINS/MINERALS THERAP 1 TAB PO SCH (09:00)
== END 2025-01-19 09:45 | disposition home or self-care (01) ==
LOC: M ED 01:19
DX: F10.129 Alcohol abuse with intoxication, unspecified (principal)
CPT/HCPCS: 80048; 80076; 80143; 82077; 82550; 84443; 84703; 85025; 93005; 93041; 94760; 96372; 96374; 99285; J1200; J1630; J2250